=== PATIENT | female | born 1985 | race Caucasian/White ===

== ENCOUNTER 2017-06-25 22:03 | Emergency (ER) | payer MEDICARE, MEDICAID ==
--- NOTE | 2017-06-25 22:09 | Emergency Department Record ---
History of Present Illness - General Chief complaint: Abscess Stated complaint: SORES ON HER GROIN AREA Time Seen by Provider: 06/25/17 22:05 Source: Patient Mode of Arrival: Ambulatory Limitations: No limitations - History of Present Illness Initial comments: 32 yo female presents with concerns about groin abscesses that have been present many months. She was treated with Clindamycin 06/02/17 by her PCP. The areas of concern have persisted. MD complaint: Abscess/boil -: Month(s) Location: Genitals Consistency: Constant Improves with: None Worsens with: None Context: Recent antibiotic Associated symptoms: Denies other symptoms Treatments Prior to Arrival: Antibiotic - Related Data Home Medications Medication Instructions Recorded Confirmed Last Taken Aspirin [Aspirin EC] 81 mg PO DAILY 07/14/15 06/25/17 1 Day Ago ~08/17/16 Atorvastatin Calcium [Lipitor] 20 mg PO DAILY 07/14/15 06/25/17 1 Day Ago ~08/17/16 Escitalopram Oxalate [Lexapro] 20 mg PO DAILY 07/14/15 06/25/17 1 Day Ago ~08/17/16 Famotidine [Pepcid] 20 mg PO DAILY 07/14/15 06/25/17 1 Day Ago ~08/17/16 Ibuprofen [Motrin] 800 mg PO Q6H PRN 07/14/15 06/25/17 1 Day Ago ~08/17/16 Cetirizine HCl [Zyrtec] 10 mg PO DAILY 06/25/17 06/25/17 Unknown Cholecalciferol (Vitamin D3) 1,000 unit PO DAILY 06/25/17 06/25/17 Unknown [Vitamin D3] Previous Rx's Medication Instructions Recorded Cephalexin [Keflex] 500 mg PO TID #21 cap 06/25/17 Sulfamethoxazole/Trimethoprim 1 each PO BID #14 tablet 06/25/17 [Bactrim Ds Tablet] Allergies Allergy/AdvReac Type Severity Reaction Status Date / Time codeine Allergy RASH Verified 06/25/17 22:07 Review of Systems Constitutional: Denies: Chills, Fever, Malaise, Weakness Eyes: Denies: Eye discharge ENT: Denies: Congestion, Throat pain Respiratory: Denies: Cough, Dyspnea, Hemoptysis Cardiovascular: Denies: Chest pain, Syncope Endocrine: Denies: Fatigue Gastrointestinal: Denies: Abdominal pain, Diarrhea, Nausea, Vomiting Genitourinary: Denies: Dysuria, Urgency Musculoskeletal: Denies: Arthralgia, Back pain, Myalgia, Neck pain Skin: Reports: As per HPI, Change in color, Lesions. 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) Hx Seizures: No Comment:: Pt states coma for 2 days and has occipital lobe issues - GI Hx GI Disorders: Yes Hx Reflux: Yes - Hx Genitourinary Disorders: No - ENDOCRINE Hx Endocrine Disorders: No Hx Diabetes: No Hx Thyroid Disease: No - MUSCULOSKELETAL Hx Musculoskeletal Disorders: Yes - PSYCH Hx Psych Problems: Yes Hx Anxiety: Yes Hx Depression: Yes - HEMATOLOGY/ONCOLOGY Hx Hematology/Oncology Disorders: Yes Hx Anemia: No Hx Blood Disorders: No Hx Bruising: No 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 negative: Conjunctival injection, Periorbital swelling - ENT ENT exam: Normal exam, Mucous membranes moist Ear exam: Normal external inspection Nasal Exam: Normal inspection Mouth exam: Normal external inspection Teeth exam: Normal inspection - Neck Neck exam: Normal inspection - Respiratory Respiratory exam: Normal lung sounds bilaterally. negative: Respiratory distress - Cardiovascular Cardiovascular Exam: Regular rate, Normal rhythm, Normal heart sounds - GI/Abdominal GI/Abdominal exam: Soft, Other (2 1cm abscess in the left groin, spares the labial area, no drainage). negative: Tenderness - Rectal Rectal exam: Deferred - exam: Abnormal external exam, Other (No labial involvement). negative: Adnexal mass (L), Adnexal mass (R), Adnexal tenderness (L), Adnexal tenderness ( R) - Extremities Extremities exam: Normal inspection - Neurological Neurological exam: Alert, Oriented X3 - Psychiatric Psychiatric exam: Normal affect, Normal mood. negative: Agitated, Anxious Course - Reevaluation(s) Reevaluation #1: Procedure I and D of groin abscesses Betadine prep Lidocaine 1% with Epi 1.5 ml The two 1 cm abscess were incised with 11 blade with pus expressed The abscesses were probed and drained until blood only Culture was obtained 06/25/17 22:31 Disposition Disposition: Discharge Clinical Impression: Abscess of groin, left Disposition: Home, Self-Care Condition: (1) Good Instructions: Abscess Incision and Drainage (ED), Abscess (ED) Additional Instructions: Keep the area clean by washing daily Take the antibiotics until gone Call your doctor tomorrow for close follow up Return if worse, fever, swelling or concerns You have a culture that will be available in 2-3 days of the infection Review that result with your doctor. Prescriptions: Cephalexin [Keflex] 500 mg PO TID #21 cap Sulfamethoxazole/Trimethoprim [Bactrim Ds Tablet] 1 each PO BID #14 tablet Forms: Patient Portal Access Time of Disposition: 22:34 Quality - Quality Measures Quality Measures: N/A - Blood Pressure Screening Does Patient Have Any of the Following: No Blood Pressure Classification: Pre-Hypertensive BP Reading Systolic Measurement: 128 Diastolic Measurement: 82 Screening for High Blood Pressure: < Pre-Hypertensive BP, F/U Documented > [ G8950] Pre-Hypertensive Follow-up Interventions: Referral to alternative/primary care provider.
[2017-06-25] MEDS: TMP/SMZ 160MG/800MG TAB PO ONE (22:39)
[2017-06-25] MEDS: CEPHALEXIN 500 MG CAPSULE PO STA (22:39)
== END 2017-06-25 22:53 | disposition home or self-care (01) ==
LOC: ER 22:03
DX: L02.214 Cutaneous abscess of groin (principal)
CPT/HCPCS: 10061 ×2; 99284 ×2; J3490

== ENCOUNTER 2018-05-30 16:50 | Emergency (ER) | payer MEDICARE, MEDICAID ==
--- NOTE | 2018-05-30 16:57 | Emergency Department Record ---
History of Present Illness - General Chief complaint: Extremity Problem Stated complaint: R GREAT TOE INFECTED Time Seen by Provider: 05/30/18 16:55 Source: Patient Mode of Arrival: Ambulatory Limitations: No limitations - History of Present Illness Initial comments: 32 yo female presents with left great toe pain. She has noted some pain, pus, and swelling at the nail edge. She typically wears flip flops. No foot redness or swelling. No history of foot or toe disease. She has been doing warm soaks without improvement MD Complaint: Joint pain, Joint swelling Location: Left, Foot History of Same: No -: No Fever Radiation: Distal Quality: Aching Consistency: Constant Improves with: Nothing Worsens with: Nothing Associated Symptoms: Denies other symptoms - Related Data Previous Rx's Medication Instructions Recorded Cephalexin [Keflex] 500 mg PO TID #21 cap 05/30/18 Hydrocodone/Acetaminophen [[place] 1 each PO Q8H #6 tablet 05/30/18 5-325 Tablet] Allergies Allergy/AdvReac Type Severity Reaction Status Date / Time codeine Allergy RASH Verified 06/25/17 22:07 Review of Systems Constitutional: Denies: Chills, Fever, Malaise, Weakness Eyes: Denies: Eye discharge ENT: Denies: Congestion, Throat pain Respiratory: Denies: Cough, Dyspnea Cardiovascular: Denies: Chest pain, Syncope Endocrine: Denies: Fatigue Gastrointestinal: Denies: Abdominal pain, Diarrhea, Nausea, Vomiting Genitourinary: Denies: Dysuria, Urgency Musculoskeletal: Reports: As per HPI, Arthralgia Skin: Reports: As per HPI, Change in color. 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) Hx Seizures: No Comment:: Pt states coma for 2 days and has occipital lobe issues - GI Hx GI Disorders: Yes Hx Reflux: Yes - Hx Genitourinary Disorders: No - ENDOCRINE Hx Endocrine Disorders: No Hx Diabetes: No Hx Thyroid Disease: No - MUSCULOSKELETAL Hx Musculoskeletal Disorders: Yes - PSYCH Hx Psych Problems: Yes Hx Anxiety: Yes Hx Depression: Yes - HEMATOLOGY/ONCOLOGY Hx Hematology/Oncology Disorders: Yes Hx Anemia: No Hx Blood Disorders: No Hx Bruising: No Hx Cancer: 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 negative: Normal inspection Image of Feet: 1 - mild erythema, swelling, tenderness, mildly ingrown toe nail - Neurological Neurological exam: Alert, Normal gait, Oriented X3 - Psychiatric Psychiatric exam: Anxious, Normal mood. negative: Agitated - Skin Skin exam: Dry, Intact, Normal color, Warm Course - Reevaluation(s) Reevaluation #1: 05/30/18 17:20 Procedure: Digital Block: Right Great Toe Sterile Betadine Prep 50/50 Bupivacaine/Lidocaine Plain 5ml Paronychia drainage: Scissors used to gently open the area of loculation Small amount of pus drained The area was irrigated and cleaned Nail edge removal: The medial 20% of the nail that was ingrown was sharply dissected and removed Disposition Disposition: Discharge Clinical Impression: Paronychia Disposition: Home, Self-Care Condition: (1) Good Instructions: Paronychia (ED), Ingrown Nail (ED) Additional Instructions: Clean the toe twice daily Warm soak twice daily Return if worse, swelling, uncontrolled pain or any new concerns Prescriptions: Cephalexin [Keflex] 500 mg PO TID #21 cap Hydrocodone/Acetaminophen [[place] 5-325 Tablet] 1 each PO Q8H #6 tablet Forms: Patient Portal Access Time of Disposition: 17:36 Quality - Quality Measures Quality Measures: N/A - Blood Pressure Screening Does Patient Have Any of the Following: No Blood Pressure Classification: Hypertensive Reading Systolic Measurement: 138 Diastolic Measurement: 90 Screening for High Blood Pressure: < Pre-Hypertensive BP, F/U Documented > [ G8950] Pre-Hypertensive Follow-up Interventions: Referral to alternative/primary care provider.
== END 2018-05-30 17:50 | disposition home or self-care (01) ==
LOC: ER 16:50
DX: L60.0 Ingrowing nail (principal); L03.031 Cellulitis of right toe
CPT/HCPCS: 11765; 99283

== ENCOUNTER 2018-06-04 17:45 | Emergency (ER) | payer MEDICARE, MEDICAID ==
--- NOTE | 2018-06-04 18:03 | Emergency Department Record ---
History of Present Illness - General Chief complaint: Extremity Problem Stated complaint: TOE PROBLEM Time Seen by Provider: 06/04/18 17:48 Source: Patient Mode of Arrival: Ambulatory Limitations: No limitations - History of Present Illness Initial comments: 32 yo female presents for a recheck of her great toe. She was seen in the ED recently for an infected great toe ingrown nail. The edge was removed and the area drained and was cleaned. She saw her mycologist on Friday. Dr Manley instructed her to continue her current care. She states since then she has used a tennis shoe for work. The toe is now painful. No swelling or erythema. No new trauma. MD Complaint: Joint pain, Other (Great Toe pain) Onset/Timin -: Days(s) Location: Right History of Same: Yes Severity scale (1-10): 8 Quality: Burning, Stabbing Consistency: Constant - Related Data Previous Rx's Medication Instructions Recorded Cephalexin [Keflex] 500 mg PO TID #21 cap 05/30/18 Hydrocodone/Acetaminophen [[place] 1 each PO Q8H #6 tablet 05/30/18 5-325 Tablet] Clindamycin HCl 300 mg PO QID #28 capsule 06/04/18 Hydrocodone/Acetaminophen [[place] 1 tab PO Q6H PRN #12 tab 06/04/18 5mg/325mg] Ibuprofen 800 mg PO Q8H #25 tablet 06/04/18 Allergies Allergy/AdvReac Type Severity Reaction Status Date / Time codeine Allergy RASH Verified 06/04/18 17:57 Travel Screening - Travel/Exposure Within Last 30 Days Have you traveled within the last 30 days?: No - Travel/Exposure Within Last Year Have you traveled outside the [place] in the last year?: No - Additonal Travel Details Have you been exposed to anyone with a communicable illness?: No Review of Systems Constitutional: Denies: Chills, Fever, Malaise, Weakness Eyes: Denies: Eye discharge ENT: Denies: Congestion, Throat pain Respiratory: Denies: Cough Cardiovascular: Denies: Chest pain Endocrine: Denies: Fatigue Gastrointestinal: Denies: Abdominal pain, Diarrhea, Nausea, Vomiting Genitourinary: Denies: Dysuria Musculoskeletal: Reports: As per HPI, Arthralgia Skin: Denies: Bruising, Change in color, Rash Neurological: Denies: Confusion, Headache, Numbness, Tingling Psychiatric: Denies: Anxiety Hematological/Lymphatic: Denies: Easy bleeding, Easy bruising Past Medical History - SOCIAL HISTORY Smoking Status: Current every day smoker Alcohol Use: None Drug Use: None - RESPIRATORY Hx Respiratory Disorders: No - CARDIOVASCULAR Hx Cardio Disorders: No Comment:: heart during anesthesia - NEURO Hx Neuro Disorders: Yes 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) Hx Seizures: No Comment:: Pt states coma for 2 days and has occipital lobe issues - GI Hx GI Disorders: Yes Hx Reflux: Yes - Hx Genitourinary Disorders: No - ENDOCRINE Hx Endocrine Disorders: No Hx Diabetes: No Hx Thyroid Disease: No - MUSCULOSKELETAL Hx Musculoskeletal Disorders: Yes - PSYCH Hx Psych Problems: Yes Hx Anxiety: Yes Hx Depression: Yes - HEMATOLOGY/ONCOLOGY Hx Hematology/Oncology Disorders: Yes Hx Anemia: No Hx Blood Disorders: No Hx Bruising: No Hx Cancer: Yes (pre cancer on cervix) Family Medical History Any Significant Family History?: No Hx Anxiety: Mother Hx Depression: Mother Hx Diabetes: Mother Hx HTN: Father Hx Kidney Disease: Mother Hx Stroke: Father Physical Exam - General General Appearance: Alert, Oriented x3, Cooperative Limitations: No limitations - Head Head exam: Atraumatic, Normal inspection - Eye Eye exam: Normal appearance - ENT ENT exam: Normal exam Ear exam: Normal external inspection Nasal Exam: Normal inspection Mouth exam: Normal external inspection - Neck Neck exam: Normal inspection - Cardiovascular Peripheral Pulses: 2+: Dorsalis Pedis (R) - Extremities Extremities exam: Normal inspection, Full ROM, Normal capillary refill, Tenderness Image of Feet: 1 - right great toe appears normal on inspection, the site is clean, no swelling, no pus, some dirt noted, no erythema, overt signs of infection, skin is intact with brisk cap refill. - Neurological Neurological exam: Alert, Oriented X3 - Psychiatric Psychiatric exam: Normal affect, Normal mood - Skin Skin exam: Dry, Intact, Normal color, Warm Course Vital Signs 06/04/18 17:50 Temperature 99.8 F H Pulse Rate 84 Respiratory 18 Rate Blood Pressure 112/54 Pulse Ox 97 - Reevaluation(s) Reevaluation #1: The area of the toe that had the ingrown nail removed appears normal on inspection, no pus, no erythema, the site where the nail was removed is normal to inspection, no pus or signs of infection Given her pain XR was ordered The area was irrigated with NS. No signs of infection or drainage after irrigation. 06/04/18 18:03 Disposition Disposition: Discharge Clinical Impression: Paronychia Disposition: Home, Self-Care Condition: (1) Good Instructions: Paronychia (ED), Ingrown Nail (ED) Additional Instructions: Irrigate the area twice daily Follow up on Friday as scheduled again with your mycologist Avoid enclosed shoes at all times Prescriptions: Clindamycin HCl 300 mg PO QID #28 capsule Hydrocodone/Acetaminophen [[place] 5mg/325mg] 1 tab PO Q6H PRN #12 tab PRN Reason: Pain - General Ibuprofen 800 mg PO Q8H #25 tablet Forms: Patient Portal Access Time of Disposition: 18:41 Quality - Quality Measures Quality Measures: N/A - Blood Pressure Screening Does Patient Have Any of the Following: No Blood Pressure Classification: Normal BP Reading Systolic Measurement: 114 Diastolic Measurement: 69 Screening for High Blood Pressure: < Normal BP, F/U Not Required > [G8783]
--- NOTE | 2018-06-05 12:39 | RADIOLOGY REPORT ---
EXAM: RIGHT GREAT TOE HISTORY: RIGHT GREAT TOE PAIN AFTER INGROWN NAIL INFECTION. TECHNIQUE: Four views of the right great toe were obtained. Please note that the films are labeled as the left great toe. I have been unsuccessful despite multiple attempts to contact the x-ray technologist to confirm which toe was actually radiographed, but presumably the films are mislabeled and it actually was the right toe that was ordered and imaged. Clinical correlation, however, is suggested by confirming that the right toe was the symptomatic toe and was the toes that was radiographed. Comparison: No prior right foot or right great toe series. Encounter: Initial. FINDINGS: No acute fracture or destructive lesion identified involving the great toe. There is probably some soft tissue swelling present. IMPRESSION: 1. SOFT TISSUE SWELLING ABOUT THE TOE. 2. NO DEFINITE FRACTURE OR DESTRUCTIVE LESION SEEN. 3. FILMS LABELED LEFT, BUT ORDERED RIGHT. PLEASE CONFIRM THAT THE SYMPTOMATIC SIDE AND THE RADIOGRAPHIC IMAGED SIDE WERE BOTH ON THE RIGHT. JOB NUMBER: [id number] MTDD
== END 2018-06-04 18:57 | disposition home or self-care (01) ==
LOC: ER 17:45
DX: L03.031 Cellulitis of right toe (principal); F17.210 Nicotine dependence, cigarettes, uncomplicated
CPT/HCPCS: 73660; 99283

== ENCOUNTER 2018-08-08 14:51 | Emergency (ER) | payer MEDICARE, MEDICAID ==
--- NOTE | 2018-08-08 15:19 | Emergency Department Record ---
History of Present Illness - General Chief Complaint: Chest Pain Stated Complaint: CHEST PAIN Time Seen by Provider: 08/08/18 14:54 Source: Patient, Family Mode of Arrival: Ambulatory Limitations: No limitations - History of Present Illness Initial Comments: 33 yo female presents with chest and arm pain that started yesterday. The pain is in the left chest, wrapping around the left side, to left arm. It started last night around 10 pm. She took an antacid without relief. It does hurt to move, turn, cough or breath. It hurts to touch her chest, back or arm. She has pain with lifting the arm. No rash. She reports she had a reaction to anesthesia in 2013. She had an intra operative arrest causing a stroke. She also had a DVT of the LUIS at that time. She does smoke. No HRT. No known CAD. She sees a director payment at [facility] a year. PCP is Dr Zhao. Complaint: Chest pain Onset/Timin -: Days(s) Pain Location: Left chest Pain Radiation: LUE, Back Severity scale (1-10): 9 Quality: Sharp Consistency: Constant Improves With: Nothing Worsens With: Movement Treatments Prior to Arrival: Aspirin Treatment Prior to Arrival Comment:: 81 mg aspirin this am - Related Data Home Medications Medication Instructions Recorded Confirmed Last Taken Tramadol HCl 50 mg PO ASDIR 08/08/18 08/08/18 08/08/18 Allergies Allergy/AdvReac Type Severity Reaction Status Date / Time codeine Allergy RASH Verified 08/08/18 15:01 Travel Screening - Travel/Exposure Within Last 30 Days Have you traveled within the last 30 days?: No Review of Systems Constitutional: Denies: Chills, Fever, Malaise, Weakness Eyes: Denies: Eye discharge ENT: Denies: Congestion, Throat pain Respiratory: Denies: Cough, Dyspnea, Hemoptysis, Stridor, Wheezes Cardiovascular: Reports: Chest pain, Edema (Left arm). Denies: Palpitations, Syncope Endocrine: Denies: Fatigue Gastrointestinal: Denies: Abdominal pain, Constipation, Diarrhea, Nausea, Vomiting Genitourinary: Denies: Dysuria Musculoskeletal: Reports: Myalgia. 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) Hx Seizures: No Comment:: Pt states coma for 2 days and has occipital lobe issues - GI Hx GI Disorders: Yes Hx Reflux: Yes - Hx Genitourinary Disorders: No - ENDOCRINE Hx Endocrine Disorders: No Hx Diabetes: No Hx Thyroid Disease: No - MUSCULOSKELETAL Hx Musculoskeletal Disorders: Yes - PSYCH Hx Psych Problems: Yes Hx Anxiety: Yes Hx Depression: Yes - HEMATOLOGY/ONCOLOGY Hx Hematology/Oncology Disorders: Yes Hx Anemia: No Hx Blood Disorders: No Hx Bruising: No Hx Cancer: Yes (pre cancer on cervix) Family Medical History Any Significant Family History?: Yes Hx Anxiety: Mother Hx Depression: Mother Hx Diabetes: Mother Hx HTN: Father Hx Kidney Disease: Mother Hx Stroke: Father Physical Exam - General General Appearance: Alert, Oriented x3, Cooperative, No acute distress Limitations: No limitations - Head Head exam: Normal inspection - Eye Eye exam: Normal appearance, PERRL. negative: Conjunctival injection, Scleral icterus - ENT ENT exam: Normal exam, Mucous membranes moist Ear exam: Normal external inspection Nasal Exam: Normal inspection Mouth exam: Normal external inspection - Neck Neck exam: Normal inspection - Respiratory Respiratory exam: Normal lung sounds bilaterally, Chest wall tenderness. negative: Accessory muscle use, Decreased breath sounds, Prolonged expiratory, Rhonchi, Stridor, Wheezes - Cardiovascular Cardiovascular Exam: Regular rate, Normal rhythm, Normal heart sounds. negative : Diastolic murmur, Systolic murmur Peripheral Pulses: 2+: Radial (R), Radial (L) - GI/Abdominal GI/Abdominal exam: Soft. negative: Tenderness - Rectal Rectal exam: Deferred - exam: Deferred - Extremities Extremities exam: Normal inspection, Full ROM, Normal capillary refill, Tenderness Image of Full Body: 1 - tender left forearm, no warmth or redness, intact pulses - Back Back exam: Reports: CVA tenderness (L). Denies: CVA tenderness (R) - Neurological Neurological exam: Alert, Oriented X3 - Psychiatric Psychiatric exam: Normal affect, Normal mood - Skin Skin exam: Dry, Intact, Normal color, Warm. negative: Rash Course Vital Signs 08/08/18 14:55 Temperature 98.4 F Pulse Rate 78 Respiratory 20 Rate Blood Pressure 131/82 Pulse Ox 96 - Reevaluation(s) Reevaluation #1: EKG #1: 1454 Rate: 71 Rhythm: Sinus [place]: Normal Intervals: Normal ST segments: Normal Prior: None 08/08/18 15:06 08/08/18 16:44 The labs were reviewed No acute changes Normal troponin, d-dimer,cbc,cmp Normal ekg. The pain is very atypical. It is very reproducible. No fever. No tachycardia. Normal WBC count. No hypoxia. No indication this is ACS,PE,Pneumonia, Pneumonthorax,dissection. 08/08/18 17:26 CXR is negative Medical Decision Making - Lab Data Result diagrams: 08/08/18 15:30 08/08/18 15:30 Disposition Disposition: Discharge Clinical Impression: Chest pain, atypical Disposition: Home, Self-Care Condition: (1) Good Instructions: Chest Wall Pain (ED) Additional Instructions: Call your family doctor. Call to schedule the next available appointment for a recheck. Return to ED if your symptoms worsen or if you have any new concerns. Review the final Emergency Record and test results with your doctor on follow up Forms: Patient Portal Access Time of Disposition: 18:43 Quality - Quality Measures Quality Measures: N/A - Blood Pressure Screening Does Patient Have Any of the Following: No Blood Pressure Classification: Pre-Hypertensive BP Reading Systolic Measurement: 131 Diastolic Measurement: 82 Screening for High Blood Pressure: < Pre-Hypertensive BP, F/U Documented > [ G8950] Pre-Hypertensive Follow-up Interventions: Referral to alternative/primary care provider.
[2018-08-08] MEDS ORDERED: KETOROLAC 30 MG/ML VIAL IVP ONE (15:20)
[2018-08-08] MEDS ORDERED: 0.9 % SODIUM CHLORIDE 1,000 ML BAG IV ONE (15:20)
[2018-08-08 15:49] LABS: BASO % 0.5 % (0-6); EOS % 3.7 % (0-6); GRAN % 52.6 % (47-80); HEMATOCRIT 40.8 % (35.0-47.0); HEMOGLOBIN 13.8 gm/dl (11.6-16.0); LYMPH % 35.7 % (16-45); MEAN CELL VOLUME 96.5 fl (81-97); MEAN CORPUSCULAR HEMOGLOBIN 32.6 pg (27-33); MEAN CORPUSCULAR HGB CONC 33.8 g/dl (32-36); MEAN PLATELET VOLUME 10.9 fl (7.4-10.4); MONO % 7.5 % (0-9); PLATELET COUNT 270 K/uL (130-400); RED BLOOD COUNT 4.23 M/uL (3.80-5.40); RED CELL DISTRIBUTION WIDTH 12.7 % (11.5-14.5); WHITE BLOOD COUNT W/O DIFF 10.9 K/uL (4.2-12.2)
[2018-08-08 16:01] LABS: BLOOD UREA NITROGEN 12 mg/dL (6-20); CREATININE 0.6 mg/dL (0.5-0.9); EST GLOMERULAR FILTRATION RATE > 60 mL/min
[2018-08-08 16:02] LABS: TOTAL PROTEIN 6.9 g/dL (6.6-8.7)
[2018-08-08 16:04] LABS: GLUCOSE,RANDOM 85 mg/dL (74-109)
[2018-08-08 16:06] LABS: ALT/SGPT 27 U/L (<33); AST/SGOT 25 U/L (10.0-35.0)
[2018-08-08 16:07] LABS: ALB/GLOB RATIO 1.5 (1.1-1.8); ALBUMIN 4.1 g/dL (4.0-5.0); ALKALINE PHOSPHATASE 86 U/L (35-104)
[2018-08-08] MEDS ORDERED: MORPHINE SULFATE 10 MG/ML VIAL IVP ONE (16:38)
[2018-08-08] MEDS ORDERED: HYDROCODONE/APAP 5/325MG TABLET PO ONE (19:02)
--- NOTE | 2018-08-11 10:56 | RADIOLOGY REPORT ---
EXAM: CHEST, TWO VIEWS HISTORY: LEFT SIDED CHEST PAIN. TECHNIQUE: PA and lateral views of the chest were obtained. Comparison: None. FINDINGS: The cardiac silhouette is within normal size limits. The pulmonary vasculature is not dilated. No focal consolidation, pleural effusion, or pneumothorax. No definite acute osseous findings. IMPRESSION: NO ACUTE CHEST FINDINGS. JOB NUMBER: [id number] MTDD
== END 2018-08-08 19:07 | disposition home or self-care (01) ==
LOC: ER 14:51
DX: R07.89 Other chest pain (principal); M79.622 Pain in left upper arm; F17.210 Nicotine dependence, cigarettes, uncomplicated; I25.2 Old myocardial infarction; Z86.718 Personal history of other venous thrombosis and embolism
CPT/HCPCS: 99284 ×2; 96374; 96375; 85025; 80053; 84703; 84484; 85379; 71046; 93005; 93010; J1885; J2270; J7030

== ENCOUNTER 2019-02-06 12:35 | Emergency (ER) | payer MEDICARE, MEDICAID ==
[2019-02-06 13:04] LABS: INFLUENZA A NEGATIVE (NEGATIVE); INFLUENZA B NEGATIVE (NEGATIVE); STREP A SCREEN NEGATIVE (NEGATIVE)
--- NOTE | 2019-02-06 13:33 | Emergency Department Record ---
History of Present Illness - General Chief complaint: Flu Like Symptoms Stated complaint: fever/congestion Time Seen by Provider: 02/06/19 13:02 Source: Patient, RN notes reviewed Mode of Arrival: Ambulatory - History of Present Illness Initial comments: sore throat and congestion and cough and PCP is Dr Parker Onset/Timin -: Days(s) Location: Generalized Quality: Aching Consistency: Constant Improves with: None Worsens with: None Associated Symptoms: Myalgias, Other - Related Data Home Medications Medication Instructions Recorded Confirmed Last Taken Alprazolam 1 mg PO ASDIR 02/06/19 02/06/19 Unknown Naproxen 500 g PO ASDIR 02/06/19 02/06/19 Unknown Allergies Allergy/AdvReac Type Severity Reaction Status Date / Time codeine Allergy RASH Verified 02/06/19 12:43 Travel Screening - Travel/Exposure Within Last 30 Days Have you traveled within the last 30 days?: No - Travel/Exposure Within Last Year Have you traveled outside the [place] in the last year?: No - Additonal Travel Details Have you been exposed to anyone with a communicable illness?: No - Travel Symptoms Symptom Screening: None Review of Systems Reviewed: No additional complaints except as noted below Constitutional: Reports: As per HPI, Weakness. Denies: Chills, Fever, Malaise, Night sweats, Weight change Eyes: Reports: As per HPI. Denies: Eye discharge, Eye pain, Photophobia, Vision change ENT: Reports: As per HPI, Congestion, Throat pain. Denies: Dental pain, Ear pain, Epistaxis, Hearing loss Respiratory: Reports: As per HPI, Cough. Denies: Dyspnea, Hemoptysis, Stridor, Wheezes Cardiovascular: Reports: As per HPI. Denies: Arrhythmia, Chest pain, Dyspnea on exertion, Edema, Murmurs, Orthopnea, Palpitations, Paroxysmal nocturnal dyspnea, Rheumatic Fever, Syncope Endocrine: Reports: As per HPI. Denies: Fatigue, Heat or cold intolerance, Polydipsia, Polyuria Gastrointestinal: Reports: As per HPI. Denies: Abdominal pain, Constipation, Diarrhea, Hematemesis, Hematochezia, Melena, Nausea, Vomiting Genitourinary: Reports: As per HPI. Denies: Abnormal menses, Discharge, Dyspareunia, Dysuria, Frequency, Hematuria, Incontinence, Retention, Urgency Musculoskeletal: Reports: As per HPI. Denies: Arthralgia, Back pain, Gout, Joint swelling, Myalgia, Neck pain Skin: Reports: As per HPI. Denies: Bruising, Change in color, Change in hair/ nails, Lesions, Pruritus, Rash Neurological: Reports: As per HPI. Denies: Abnormal gait, Confusion, Headache, Numbness, Paresthesias, Seizure, Tingling, Tremors, Vertigo, Weakness Psychiatric: Reports: As per HPI. Denies: Anxiety, Auditory hallucinations, Depression, Homicidal thoughts, Suicidal thoughts, Visual hallucinations Hematological/Lymphatic: Reports: As per HPI. 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) Hx Seizures: No Comment:: Pt states coma for 2 days and has occipital lobe issues - GI Hx GI Disorders: Yes Hx Reflux: Yes - Hx Genitourinary Disorders: No - ENDOCRINE Hx Endocrine Disorders: No Hx Diabetes: No Hx Thyroid Disease: No - MUSCULOSKELETAL Hx Musculoskeletal Disorders: Yes - PSYCH Hx Psych Problems: Yes Hx Anxiety: Yes Hx Depression: Yes - HEMATOLOGY/ONCOLOGY Hx Hematology/Oncology Disorders: Yes Hx Anemia: No Hx Blood Disorders: No Hx Bruising: No Hx Cancer: 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 negative: External canal tenderness Nasal Exam: Normal inspection. negative: Discharge, Sinus tenderness Mouth exam: Normal external inspection, Tongue normal Teeth exam: Normal inspection. negative: Dental caries Throat exam: Normal inspection. negative: Tonsillar erythema, Tonsillar exudate - Neck Neck exam: Normal inspection, Full ROM. negative: Tenderness - Respiratory Respiratory exam: Normal lung sounds bilaterally. negative: Respiratory distress - Cardiovascular Cardiovascular Exam: Regular rate, Normal rhythm, Normal heart sounds - GI/Abdominal GI/Abdominal exam: Soft, Normal bowel sounds. negative: Tenderness - Rectal Rectal exam: Deferred - exam: Deferred - Extremities Extremities exam: Normal inspection, Full ROM, Normal capillary refill. negative: Tenderness - Back Back exam: Reports: Normal inspection, Full ROM. Denies: Muscle spasm, Rash noted, Tenderness - Neurological Neurological exam: Alert, Normal gait, Oriented X3, Reflexes normal - Psychiatric Psychiatric exam: Normal affect, Normal mood - Skin Skin exam: Dry, Intact, Normal color, Warm Course Vital Signs 02/06/19 12:46 Temperature 100.2 F H Pulse Rate 108 H Respiratory 18 Rate Blood Pressure 131/81 Pulse Ox 96 Medical Decision Making - Lab Data Lab Results 02/06/19 Range/Units 12:45 Influenza Type A Ag Negative (NEGATIVE) Influenza Type B Ag Negative (NEGATIVE) Group A Strep Screen Negative (NEGATIVE) Disposition Clinical Impression: Viral syndrome Pharyngitis Qualifiers: Pharyngitis/tonsillitis etiology: unspecified etiology Qualified Code(s): J02.9 - Acute pharyngitis, unspecified Disposition: Home, Self-Care Condition: (1) Good Instructions: Viral Syndrome (ED), Pharyngitis (ED) Additional Instructions: fluid and rest follow up with family dr in 4 days use aleve twice a day Time of Disposition: 13:36 Quality - Quality Measures Quality Measures: N/A - Blood Pressure Screening Does Patient Have Any of the Following: No Blood Pressure Classification: Pre-Hypertensive BP Reading Systolic Measurement: 131 Diastolic Measurement: 81 Screening for High Blood Pressure: < Pre-Hypertensive BP, F/U Documented > [ [id number]] Pre-Hypertensive Follow-up Interventions: Referral to alternative/primary care provider.
[2019-02-06] MEDS ORDERED: NAPROXEN 250 MG TABLET PO ONE (13:36)
== END 2019-02-06 13:49 | disposition home or self-care (01) ==
LOC: ER 12:35
DX: J02.9 Acute pharyngitis, unspecified (principal); B34.9 Viral infection, unspecified; I25.2 Old myocardial infarction; F17.210 Nicotine dependence, cigarettes, uncomplicated
CPT/HCPCS: 87400; 87880; 99282